=== PATIENT | female | born 1970 | race Caucasian/White ===

== ENCOUNTER 2021-10-17 01:07 | Inpatient (IN) | payer SELFPAY ==
[2021-10-17] MEDS ORDERED: Sodium Chloride 0.9% 500 ML IV ONE (01:11)
[2021-10-17] MEDS ORDERED: Sodium Chloride 0.9% 10 ML Syringe FLUSH PRN ×2 (01:11→01:27)
[2021-10-17] MEDS ORDERED: Sodium Chloride 0.9% 50 ML IV ONE (01:27)
[2021-10-17] MEDS ORDERED: Iopamidol 755 Mg/ML 100 ML Bottle IV SCH (01:30)
[2021-10-17 01:46] LABS: ESTIMATED GFR 36 mL/min (>60); TROPONIN I HIGH SENSITIVITY 24.1 pg/mL (<=60.3)
[2021-10-17] MEDS ORDERED: niCARdipine HCl 25 MG in Sodium Chloride 0.9% 240 ML IV SCH (02:00)
[2021-10-17] MEDS ORDERED: Acetaminophen 500 MG Tab PO ONE (02:29)
[2021-10-17] MEDS ORDERED: Potassium Chloride 20 MEQ Tab.ER PO ONE (02:30)
[2021-10-17] MEDS ORDERED: Sodium Chloride 0.9% 1,000 ML IV SCH (02:45)
[2021-10-17] MEDS ORDERED: atorvaSTATin 20 MG Tab PO ONE (03:20)
[2021-10-17] MEDS: Aspirin 81 MG Tab.Chew PO SCH ×2 (03:45→09:13)
[2021-10-17] MEDS: Clopidogrel 75 MG Tab PO SCH ×2 (03:45→09:13)
[2021-10-17] MEDS ORDERED: Ondansetron 4 MG Tab.DIS PO PRN (05:33)
[2021-10-17] MEDS ORDERED: Nicotine 21 MG/24 Hr Patch TRDERM PRN (05:33)
[2021-10-17] MEDS ORDERED: Ondansetron 4 MG/2 ML SDV IV PRN (05:33)
[2021-10-17] MEDS ORDERED: Magnesium Hydroxide 400 MG/5 ML Susp 30 ML Cup PO PRN (05:33)
[2021-10-17] MEDS ORDERED: Potassium Chloride 20 MEQ, Lidocaine 1% 2 ML in Sodium Chloride 0.9% 100 ML IV SCH (05:33)
[2021-10-17] MEDS ORDERED: Potassium Chloride 20 MEQ in Premix Bag 1 BAG IV ONE (05:36)
[2021-10-17] MEDS ORDERED: Lidocaine 1% 5 ML VIAL INJECT ONE (05:36)
[2021-10-17] MEDS: Acetaminophen 325 MG Tab PO PRN (13:19)
[2021-10-18] MEDS: Clopidogrel 75 MG Tab PO SCH (08:24)
[2021-10-18] MEDS: Aspirin 81 MG Tab.Chew PO SCH (08:24)
[2021-10-18] MEDS ORDERED: Clopidogrel 75 MG Tab PO SCH (09:00)
[2021-10-18] MEDS: amLODIPine 5 MG Tab PO SCH (16:15)
[2021-10-19] MEDS: Aspirin 81 MG Tab.Chew PO SCH (08:39)
[2021-10-19] MEDS: amLODIPine 5 MG Tab PO SCH (08:39)
[2021-10-19] MEDS: Clopidogrel 75 MG Tab PO SCH (08:40)
[2021-10-19] MEDS ORDERED: Potassium Chloride 20 MEQ Tab.ER PO ONE ×2 (09:04→17:00)
[2021-10-19] MEDS: Acetaminophen 325 MG Tab PO PRN (19:31)
[2021-10-19] MEDS: Metoprolol Tartrate 25 MG Tab PO SCH (20:26)
[2021-10-19] MEDS ORDERED: Metoprolol Tartrate 50 MG Tab PO SCH (21:00)
[2021-10-19] MEDS ORDERED: cefTRIAXone 1 GM in Sodium Chloride 0.9% 50 ML IV SCH (23:33)
[2021-10-20] MEDS: Acetaminophen 325 MG Tab PO PRN (07:09)
[2021-10-20] MEDS: Clopidogrel 75 MG Tab PO SCH (08:27)
[2021-10-20] MEDS: amLODIPine 5 MG Tab PO SCH (08:27)
[2021-10-20] MEDS: Aspirin 81 MG Tab.Chew PO SCH (08:27)
[2021-10-20] MEDS: Metoprolol Tartrate 25 MG Tab PO SCH (08:28)
== END 2021-10-20 15:09 | disposition home or self-care (01) | DRG 65 ==
LOC: JP.ED 01:07 → JP.MS 05:13
PROVIDERS: ADMIT Internal Medicine; ATTEND Hospitalist
DX: I63.9 Cerebral infarction, unspecified (principal); G81.91 Hemiplegia, unspecified affecting right dominant side; N30.00 Acute cystitis without hematuria; F17.210 Nicotine dependence, cigarettes, uncomplicated; E87.6 Hypokalemia; I12.9 Hypertensive chronic kidney disease with stage 1 through stage 4 chronic kidney disease, or unspecified chronic kidney disease; N18.31 Chronic kidney disease, stage 3a; R29.707 NIHSS score 7; Z20.822 Contact with and (suspected) exposure to COVID-19; F32.9 Major depressive disorder, single episode, unspecified; I25.10 Atherosclerotic heart disease of native coronary artery without angina pectoris; D64.9 Anemia, unspecified; Z79.82 Long term (current) use of aspirin; Z79.899 Other long term (current) drug therapy; Z79.52 Long term (current) use of systemic steroids; Z95.1 Presence of aortocoronary bypass graft; Z95.5 Presence of coronary angioplasty implant and graft; Z86.16 Personal history of COVID-19
CPT/HCPCS: 36415; 70450; 70496; 70498; 70544; 70544-26; 70551; 70551-26; 80048; 80053; 81001; 84132; 84484; 85025; 85610; 85730; 87086; 87088; 87186; 93005; 93010; 93306; 97110-GP; 97112-GP; 97162-GP; 97167-GO; 97530-GP; 97535-GP; 99223; 99232; 99238; 99285; A9270-GY; J0696; J3480; J3490; J7030; J7040; J7050; Q9967; U0002

== ENCOUNTER 2024-04-26 07:36 | Day surgery (SDC) | payer OTHER, MEDICARE ==
[~2024-04-26 07:36] MED LIST: Midazolam 1 MG/ML 2 ML SDV ONE; Propofol 200 MG/20 ML SDV ONE; fentaNYL 50 MCG/ML SDV ONE
[2024-04-26] MEDS: Lactated Ringers 1,000 ML IV SCH (08:20)
== END 2024-04-26 09:53 | disposition home or self-care (01) ==
LOC: JP.SDS 07:36
PROVIDERS: ATTEND Family Medicine
DX: Z12.11 Encounter for screening for malignant neoplasm of colon (principal); K63.5 Polyp of colon; Z86.0100 Personal history of colon polyps, unspecified; I25.10 Atherosclerotic heart disease of native coronary artery without angina pectoris; I12.9 Hypertensive chronic kidney disease with stage 1 through stage 4 chronic kidney disease, or unspecified chronic kidney disease; N18.30 Chronic kidney disease, stage 3 unspecified; E78.5 Hyperlipidemia, unspecified; Z79.899 Other long term (current) drug therapy; Z80.0 Family history of malignant neoplasm of digestive organs
CPT/HCPCS: 00811; 45380; J2250; J2704; J3010; J7120